=== PATIENT | male | born 1955 | race Caucasian/White ===

== ENCOUNTER 2017-11-16 08:02 | Outpatient (CLI) | payer OTHER ==
[~2017-11-16 08:02] MED LIST: ACTOPLUS MET1 TABLE1 PO; ALEVE220 MG PO; ASPIR-LOW81 MG PO; ATENOLOL50 MG PO; DIOVAN HCT 31 TABLE1 PO; FLOMAX0.4 MG PO; GLIPIZIDE10 MG PO; HYTRIN2 MG PO; JANUVIA100 MG PO; LIPITOR80 MG PO; MELOXICAM7.5 MG PO; NORCO 5/3251 TABLET PO; OSTEO BI-FLEX1 EAC2 PO; PROCARDIA XL90 MG PO; TRILIPIX135 MG PO; VALTREX1000 MG PO
== END 2017-11-17 11:59 | disposition home or self-care (01) ==
LOC: NUC 08:02
PROC: C21G1ZZ Planar Nuclear Medicine Imaging of Myocardium using Technetium 99m (Tc-99m) (ICD-10-PCS; principal; 2017-11-16)
DX: R93.9 Diagnostic imaging inconclusive due to excess body fat of patient (principal); E66.01 Morbid (severe) obesity due to excess calories; R07.9 Chest pain, unspecified; R06.02 Shortness of breath; I10 Essential (primary) hypertension; E78.2 Mixed hyperlipidemia; E11.9 Type 2 diabetes mellitus without complications; Z82.49 Family history of ischemic heart disease and other diseases of the circulatory system
CPT/HCPCS: 78452; 78999; 93017; A9500; J2785